=== PATIENT | female | born 1930 | race Two or more races ===

== ENCOUNTER 2019-10-15 11:13 | Outpatient (RCR) | payer MEDICARE, OTHER | END 2019-10-26 | disposition home or self-care (01) | LOC: WCC 11:13 | DX: L97.513 Non-pressure chronic ulcer of other part of right foot with necrosis of muscle (principal); E08.22 Diabetes mellitus due to underlying condition with diabetic chronic kidney disease; R54 Age-related physical debility; L03.115 Cellulitis of right lower limb; Z87.891 Personal history of nicotine dependence; I10 Essential (primary) hypertension; Z85.528 Personal history of other malignant neoplasm of kidney; E11.9 Type 2 diabetes mellitus without complications; Z95.0 Presence of cardiac pacemaker; Z90.710 Acquired absence of both cervix and uterus; Z79.899 Other long term (current) drug therapy; Z79.82 Long term (current) use of aspirin; R60.0 Localized edema | CPT/HCPCS: G0463 ==

== ENCOUNTER → 2019-10-15 | Outpatient (CLI) | payer MEDICARE, OTHER ==
--- NOTE | 2019-10-15 15:28 | Diagnostic Imaging Report ---
Indication: Left leg pain and swelling. Nonhealing ulcers Technique: Grayscale and duplex Doppler imaging of the veins in left lower extremity performed in real time utilizing compression and augmentation. Comparison: None Findings: Duplex Doppler interrogation of the veins in left lower extremity is performed from the common femoral vein to the popliteal vein. Normal venous compressibility demonstrated throughout. No thrombus identified. Imaged calf veins demonstrate no appreciable thrombus as normal color flow is seen. IMPRESSION: No evidence of deep venous thrombosis involving the visualized veins of the left lower extremity.
--- NOTE | 2019-10-15 15:52 | Diagnostic Imaging Report ---
Indication: Foot pain. Reported history of fracture. Technique: 2 views of the left foot Comparison: None Findings: Limited exam as only 2 views were obtained. Bones are demineralized. No definite/displaced acute fractures appreciated. Lisfranc alignment of the foot appears maintained. There is a plantar calcaneal enthesophyte. There are atherosclerotic vascular calcifications. No radiopaque foreign body identified. IMPRESSION: Limited exam as above. No radiographically appreciable acute fracture. More sensitive evaluation can be made with CT as clinically indicated. Atherosclerotic vascular calcifications. Osteopenia.
--- NOTE | 2019-10-15 16:12 | Diagnostic Imaging Report ---
Indication: Left leg pain Technique: Grayscale and duplex Doppler imaging of the arteries of the left lower extremity Comparison: None Findings: The left common femoral artery is patent with a normal triphasic waveform. Visualized portions of the proximal left profunda femoris artery are patent. There are atherosclerotic vascular calcifications within the left superficial femoral artery which is patent and demonstrates a biphasic waveform. Left popliteal artery is patent with a biphasic waveform. Evaluation of the tibial arteries was performed. The left posterior tibial artery appears patent with a monophasic waveform. Left anterior tibial artery is patent with a monophasic waveform. Imaged portions of the left peroneal artery are patent. Dorsalis pedis artery is patent with a biphasic waveform. IMPRESSION: Arteries to the left lower extremity are patent. No occlusion or significant stenosis is appreciated. Atherosclerotic disease noted with scattered overall mild atherosclerotic calcifications with associated mild stenoses. Consider ABIs or CT angiogram for additional assessment as clinically indicated.
== END | disposition home or self-care (01) ==
LOC: VAS 13:40
DX: M79.605 Pain in left leg (principal); R22.42 Localized swelling, mass and lump, left lower limb; L97.929 Non-pressure chronic ulcer of unspecified part of left lower leg with unspecified severity; M85.872 Other specified disorders of bone density and structure, left ankle and foot; M25.572 Pain in left ankle and joints of left foot
CPT/HCPCS: 93926; 93971